=== PATIENT | female | born 1955 | race Two or more races ===

== ENCOUNTER 2017-03-15 12:48 | Inpatient (IN) | payer OTHER ==
[~2017-03-15] VITALS: Ht 157.5 cm; Wt 80.0 kg
[2017-03-15 13:55] LABS: BASOPHIL % 0.4 % (0-2); PLATELET COUNT 251 x10^3mcL (130-400); RED CELL DISTRIBUTION WIDTH 13.4 % (11.5-14.5)
[2017-03-15 14:07] LABS: CALCIUM 8.8 mg/dL (8.5-10.1); CARBON DIOXIDE 28.3 mmol/L (21-32); POTASSIUM SERUM 4.3 mmol/L (3.5-5.1)
[2017-03-15 14:12] LABS: ALBUMIN 3.1 g/dL (3.4-5.0); BILIRUBIN TOTAL 0.31 mg/dL (0.20-1.00); TOTAL PROTEIN, SERUM 7.8 g/dL (6.4-8.2)
[2017-03-15] MEDS ORDERED: METFORMIN HCL1000 MG PO ×2 (14:35)
[2017-03-15] MEDS ORDERED: LOTENSIN40 MG PO (14:35)
[2017-03-15 15:35] LABS: PHOSPHOROUS 3.9 mg/dL (2.5-4.9)
[2017-03-15 15:42] LABS: T3 TOTAL 1.07 ng/mL
[2017-03-15 15:44] LABS: FREE T4 1.21 ng/dL (0.76-1.46); FREE THYROXINE INDEX 3.2 ug/dL (1.4-4.5); T4(THYROXINE) 9.8 ug/dL (4.7-13.3)
[2017-03-15 15:53] VITALS: BP 170/81
[2017-03-15 16:10] VITALS: BP 147/67; BP 147/71
[2017-03-15 17:20] VITALS: BP 113/63
[2017-03-15] MEDS ORDERED: ALPRAZOLAM1 MG PO (18:39)
[2017-03-15] MEDS ORDERED: ROBAXIN500 MG PO (18:40)
[2017-03-15] MEDS ORDERED: IBUPROFEN800 MG PO (18:50)
[2017-03-15 21:21] VITALS: BP 157/86
[2017-03-16 06:05] VITALS: BP 128/75
[2017-03-16 06:27] LABS: CALCIUM 8.4 mg/dL (8.5-10.1); CARBON DIOXIDE 24.1 mmol/L (21-32); CHLORIDE SERUM 111 mmol/L (98-107); CREATININE SERUM 0.8 mg/dL (0.6-1.0); GFR1 > 60 mL/min; GLUCOSE SERUM 128 mg/dL (74-106); POTASSIUM SERUM 4.5 mmol/L (3.5-5.1); SODIUM SERUM 145 mmol/L (136-145)
[2017-03-16 06:28] LABS: microscopic required? NO
[2017-03-16 08:00] LABS: UA SPECIFIC GRAVITY 1.025 (1.005-1.035); urine erythrocyte NEGATIVE (NEGATIVE)
[2017-03-16 08:09] LABS: AMPHETAMINE QUAL UR NONE DETECTED (NEG <=1000)
[2017-03-16 09:15] LABS: BASOPHIL % 0.5 % (0-2); PLATELET COUNT 233 x10^3mcL (130-400); RED CELL DISTRIBUTION WIDTH 13.6 % (11.5-14.5)
[2017-03-16 10:00] VITALS: BP 146/71
[2017-03-16 14:30] VITALS: BP 120/65
[2017-03-16 17:27] VITALS: BP 151/72
[2017-03-16 21:38] VITALS: BP 159/73
[2017-03-17 05:56] VITALS: BP 143/58
[2017-03-17 06:15] LABS: BASOPHIL % 0.5 % (0-2); PLATELET COUNT 227 x10^3mcL (130-400); RED CELL DISTRIBUTION WIDTH 13.5 % (11.5-14.5)
[2017-03-17 06:41] LABS: CALCIUM 8.8 mg/dL (8.5-10.1); CARBON DIOXIDE 25.3 mmol/L (21-32); CHLORIDE SERUM 109 mmol/L (98-107); CREATININE SERUM 0.7 mg/dL (0.6-1.0); GFR1 > 60 mL/min; GLUCOSE SERUM 130 mg/dL (74-106); POTASSIUM SERUM 4.2 mmol/L (3.5-5.1); SODIUM SERUM 143 mmol/L (136-145)
[2017-03-17 09:14] VITALS: BP 121/65
[2017-03-17 12:18] VITALS: BP 139/66
[2017-03-17] MEDS ORDERED: CLEOCIN HCL300 MG PO (16:38)
[2017-03-17] MEDS ORDERED: LAC PO (16:38)
[2017-03-17 16:45] VITALS: BP 139/66
== END 2017-03-17 17:50 | disposition home or self-care (01) | DRG 197 ==
LOC: ED 12:48 → DU 14:18
PROVIDERS: Emergency Medicine; ADMIT Family Medicine
DX: E11.52 Type 2 diabetes mellitus with diabetic peripheral angiopathy with gangrene (principal); N17.0 Acute kidney failure with tubular necrosis; E44.0 Moderate protein-calorie malnutrition; D68.69 Other thrombophilia; E11.42 Type 2 diabetes mellitus with diabetic polyneuropathy; E11.628 Type 2 diabetes mellitus with other skin complications; L03.116 Cellulitis of left lower limb; E11.65 Type 2 diabetes mellitus with hyperglycemia; E11.59 Type 2 diabetes mellitus with other circulatory complications; I69.354 Hemiplegia and hemiparesis following cerebral infarction affecting left non-dominant side; I10 Essential (primary) hypertension; M06.9 Rheumatoid arthritis, unspecified; F41.1 Generalized anxiety disorder; D64.9 Anemia, unspecified; E78.5 Hyperlipidemia, unspecified; E66.9 Obesity, unspecified; Z68.34 Body mass index [BMI] 34.0-34.9, adult; Z79.84 Long term (current) use of oral hypoglycemic drugs
CPT/HCPCS: 82962; 83880; 84439; J1956; J2060; J3490; J7030; Q0092